=== PATIENT | female | born 1995 | race Caucasian/White ===

== ENCOUNTER 2024-01-25 11:18 | Emergency (ER) | payer MEDICAID, SELFPAY ==
[2024-01-25] VITALS (18 sets, daily range): BP systolic 162; BP diastolic 98; PULSE 99–115; TEMP 37.1; O2SAT 91–99; BMI 41.0
--- NOTE | 2024-01-25 12:17 | ECG_ITS ---
The [facility] Test Date: 2024-01-25 Pat Name: KIKI DIAZ Department: Room: - Gender: Female [employer]: : 1995 Requested By: [id number] Order Number: [id number] Reading MD: JULI LINDA Measurements Intervals [place] Rate: 106 P: 36 IN: 152 QRS: 9 QRSD: 86 T: 66 QT: 344 QTc: 406 Interpretive Statements 1120 Sinus tachycardia 9140 abnormal rhythm ECG No previous ECG available for comparison Electronically Signed On 01-25-2024 22:31:25 EDT by JULI LINDA
--- NOTE | 2024-01-25 12:17 | XR_ITS ---
The [address] [address] Patient Name: KIKI DIAZ MRN: [id number] date: 1995 Sex: F Assigned Patient Location: ER Current Patient Location: ER Accession/Order Number: [id number] Exam Date: 01/25/2024 13:05 Report Date: 01/25/2024 13:38 At the request of: JESSY MARIN Procedure: XR chest 2V EXAM: XR chest 2V HISTORY: chest pain w deep breath COMPARISON: 05/17/2021 TECHNIQUE: Upright PA and lateral chest x-ray FINDINGS: Shallow inspiration. Subtle atelectasis or infiltrate is seen at the left lung base posteriorly. The lungs otherwise clear, there is no evidence of an effusion or pneumothorax. The heart is not enlarged and the vasculature is not distended. The osseous structures are grossly intact XR/XR chest 2V IMPRESSION: A small amount of atelectasis or infiltrate is seen at the left lung base posteriorly. This may be exaggerated by the shallow inspiration. There is no other evidence of a focal infiltrate or cardiac decompensation. Electronically authenticated by: TRICE SINGER Date: 01/25/2024 13:38
[2024-01-25] MEDS: ALBUTEROL SULFATE 2.5 MG/3 ML VIAL NEB IH (12:31)
--- NOTE | 2024-01-25 13:29 | ED_ITS ---
Documented by User: ANA PAULA Aleman 01/25/24 15:20 HPI HPI - General Adult General Chief complaint: Shortness of Breath/Dyspnea Stated complaint: SHORTNESS OF BREATH Time Seen by Provider: 01/25/24 13:08 Source: patient Mode of arrival: walk-in Limitations: no limitations History of Present Illness HPI narrative: Patient is a 28-year-old female with a history of asthma and lupus who presents to the emergency department for evaluation of left upper chest pain that began last night. She denies any mechanism of injury or trauma. She states that the pain is worse with movement and deep breathing. She denies any recent illness, fevers, cough or congestion. She has not had any extremity swelling, hemoptysis. She does take control. She is a regular smoker and states she vapes. She has had no medications prior to arrival. Related Data Previous Rx's ?Medication ?Instructions ?Recorded ketorolac 10 mg tablet 10 mg PO TID PRN pain #10 tabs 01/25/24 methocarbamol 750 mg tablet 750 mg PO TID PRN pain #20 tabs 01/25/24 methylprednisolone 4 mg tablets in See Rx Instructions .Route 01/25/24 a dose pack (Medrol (Bernard)) .COMPLEX #21 ea Allergies Allergy/AdvReac Type Severity Reaction Status Date / Time No Known Drug Allergies Allergy Verified 01/25/24 11:42 Opioid HPI Opioid Management Most Recent Opioid Data: Last Pain Scale 7 01/25/24 13:41 Last MAR Pain Assessment 01/25/24 13:41 Review of Systems ROS Constitutional Denies: fever or chills Ears, nose, mouth, and throat Denies: throat pain or nasal congestion Cardiovascular Reports: chest pain Respiratory Denies: shortness of breath or cough Gastrointestinal Denies: nausea or vomiting Musculoskeletal Denies: back pain or neck pain Integumentary/Breast Denies: rash Hematologic/Lymphatic Denies: easy bruising or easy bleeding PFSH PFSH Social History Little interest or pleasure in doing things: not at all Feeling down, depressed, or hopeless: not at all Exam Narrative Exam Narrative: Gen.: Awake, alert, in no distress Head: Normocephalic, atraumatic ENT: Moist mucous membranes Respiratory: No respiratory distress, lungs clear bilaterally; pain on inspiration Cardio: Regular rate and rhythm Extremities: Moves extremities equally Psych: Normal mood and affect Neuro: No focal neuro deficit Skin: Warm, dry, intact Constitutional Vital Signs, click to edit/add: Last Vital Signs Temp 98.7 F 01/25/24 11:37 Pulse 112 H 01/25/24 14:30 Resp 28 H 01/25/24 14:30 BP 162/98 H 01/25/24 11:37 Pulse Ox 98 01/25/24 14:30 O2 Del Method Room Air 01/25/24 12:32 Course Vital Signs Vital signs: Vital Signs Temperature 98.7 F 01/25/24 11:37 Pulse Rate 109 H 01/25/24 11:37 Respiratory Rate 20 01/25/24 11:37 Blood Pressure 162/98 H 01/25/24 11:37 Pulse Oximetry 98 01/25/24 11:37 Oxygen Delivery Method Room Air 01/25/24 11:37 Temperature 98.7 F 01/25/24 11:37 Pulse Rate 112 H 01/25/24 14:30 Respiratory Rate 28 H 01/25/24 14:30 Blood Pressure 162/98 H 01/25/24 11:37 Pulse Oximetry 98 01/25/24 14:30 Oxygen Delivery Method Room Air 01/25/24 12:32 Medical Decision Making [facility] Narrative Medical decision making narrative: The patient is on control and did have tachycardia in the ER so we are not able to use a PERC score to rule out PE. Labs, IV and medications for the patient were ordered. The labs are all within normal limits except for D-dimer which was elevated. Patient was sent for CT angio of the chest which shows mild bibasilar atelectasis and fatty liver with no other acute process. Patient will be treated for pleurisy with a steroid taper, muscle relaxant and NSAIDs for home. Follow-up with PCP and return to the emergency department if symptoms change or worsen. SUPERVISED APC VISIT, PHYSICIAN ATTESTATION: Based on the medical record the care appears appropriate. ? Medical Records Medical records reviewed: Yes I reviewed the patient's medical records Lab Data Lab results reviewed: Yes I reviewed the patient's lab results Labs: Lab Results 01/25/24 Range/Units 13:31 WBC 4.1 (4.0-11.0) 10^3/uL RBC 4.44 (4.20-5.40) 10^6/uL Hgb 11.5 L (12.0-16.0) g/dL Hct 36.1 (36.0-48.0) % MCV 81.3 (81.0-99.0) fL MCH 25.9 L (26.7-34.0) pg MCHC 31.9 (29.9-35.2) g/dL RDW 13.3 (11.0-15.0) % Plt Count 208 (150-450) 10^3/uL MPV 9.4 L (9.5-13.5) fL Neut % (Auto) 39.2 L (43.0-75.0) % Lymph % (Auto) 49.4 (20.5-60.0) % Gregg % (Auto) 9.0 (1.7-12.0) % Eos % (Auto) 1.7 (0.9-7.0) % Baso % (Auto) 0.5 (0.2-2.0) % Neut # (Auto) 1.6 (1.4-6.5) 10^3/uL Lymph # (Auto) 2.0 (1.2-3.8) 10^3/uL Gregg # (Auto) 0.4 (0.3-0.8) 10^3/uL Eos # (Auto) 0.1 (0.0-0.7) 10^3/uL Baso # (Auto) 0.0 (0.0-0.1) 10^3/uL Abs Immat Gran (auto) 0.01 (0.00-0.03) 10^3/uL Imm/Tot Granulo (auto) 0.2 (0.0-0.5) % D-Dimer 0.71 H* (<=0.59) mg/L FEU Sodium 140 (136-145) mmol/L Potassium 3.7 (3.5-5.1) mmol/L Chloride 103 (98-107) mmol/L Carbon Dioxide 27.9 (21.0-32.0) mmol/L Anion Gap 12.8 BUN 10.0 (7.0-18.0) mg/dL Creatinine 0.67 (0.55-1.02) mg/dL Est GFR ( Amer) >60 (>=60) Est GFR (Non-Af Amer) >60 (>=60) BUN/Creatinine Ratio 14.9 Glucose 106 (74-106) mg/dL Calcium 9.0 (8.5-10.1) mg/dL Total Bilirubin 0.3 (0.2-1.0) mg/dL AST 93 H (15-37) U/L ALT 111 H (14-59) U/L Alkaline Phosphatase 65 (46-116) U/L Troponin I High Sens 4.8 (4.0-51.3) pg/mL Total Protein 7.9 (6.4-8.2) g/dL Albumin 3.6 (3.4-5.0) g/dL Globulin 4.3 g/dL Albumin/Globulin Ratio 0.8 Imaging Data Chest x-ray: Radiologist's impression: ITS Impressions Chest X-Ray 01/25/24 12:17 IMPRESSION: A small amount of atelectasis or infiltrate is seen at the left lung base posteriorly. This may be exaggerated by the shallow inspiration. There is no other evidence of a focal infiltrate or cardiac decompensation. Electronically authenticated by: TRICE SINGER Date: 01/25/2024 13:38 Chest CTA 01/25/24 14:19 IMPRESSION: No central pulmonary thromboembolic disease Mild dependent atelectasis Marked hepatic steatosis Electronically authenticated by: DRE KHOURY Date: 01/25/2024 15:14 ECG Data Attestation: I personally reviewed and interpreted this ECG as follows: (Sinus tachycardia at a rate of 106, no acute ST elevation or ectopy. EKG reviewed by attending physician) Discharge Plan Discharge Chief Complaint: Shortness of Breath/Dyspnea Clinical Impression: Pleurisy, Acute chest wall pain Patient Disposition: Home, Self-Care Time of Disposition Decision: 15:19 Condition: Good Prescriptions / Home Meds: New ketorolac 10 mg tablet 10 mg PO TID PRN (Reason: pain) Qty: 10 0RF methocarbamol 750 mg tablet 750 mg PO TID PRN (Reason: pain) Qty: 20 0RF methylprednisolone [Medrol (Bernard)] 4 mg tablets,dose pack See Rx Instructions .ROUTE .COMPLEX Qty: 21 0RF Rx Instructions: Taper as directed Print Language: Kinyarwanda Instructions: Pleurisy (ED), Chest Wall Pain (ED) Referrals: Physician,Non-Staff, [Primary Care Provider] - 1 week Discharge Date/Time: 01/25/24 15:26 Documented by User: Jerzy Griffin MD 01/25/24 16:21 HPI HPI - General Adult General Chief complaint: Shortness of Breath/Dyspnea Stated complaint: SHORTNESS OF BREATH Time Seen by Provider: 01/25/24 13:08 Related Data Previous Rx's ?Medication ?Instructions ?Recorded ketorolac 10 mg tablet 10 mg PO TID PRN pain #10 tabs 01/25/24 methocarbamol 750 mg tablet 750 mg PO TID PRN pain #20 tabs 01/25/24 methylprednisolone 4 mg tablets in See Rx Instructions .Route 01/25/24 a dose pack (Medrol (Bernard)) .COMPLEX #21 ea Allergies Allergy/AdvReac Type Severity Reaction Status Date / Time No Known Drug Allergies Allergy Verified 01/25/24 11:42 Opioid HPI Opioid Management Most Recent Opioid Data: Last Pain Scale 7 01/25/24 13:41 Last MAR Pain Assessment 01/25/24 13:41 PFSH PFSH Social History Little interest or pleasure in doing things: not at all Feeling down, depressed, or hopeless: not at all Exam Constitutional Vital Signs, click to edit/add: Last Vital Signs Temp 98.7 F 01/25/24 11:37 Pulse 112 H 01/25/24 14:30 Resp 28 H 01/25/24 14:30 BP 162/98 H 01/25/24 11:37 Pulse Ox 98 01/25/24 14:30 O2 Del Method Room Air 01/25/24 12:32 Course Vital Signs Vital signs: Vital Signs Temperature 98.7 F 01/25/24 11:37 Pulse Rate 109 H 01/25/24 11:37 Respiratory Rate 20 01/25/24 11:37 Blood Pressure 162/98 H 09/17/24 11:37 Pulse Oximetry 98 01/25/24 11:37 Oxygen Delivery Method Room Air 01/25/24 11:37 Temperature 98.7 F 01/25/24 11:37 Pulse Rate 112 H 01/25/24 14:30 Respiratory Rate 28 H 01/25/24 14:30 Blood Pressure 162/98 H 01/25/24 11:37 Pulse Oximetry 98 01/25/24 14:30 Oxygen Delivery Method Room Air 01/25/24 12:32 Medical Decision Making MDM Narrative Medical decision making narrative: The patient is on control and did have tachycardia in the ER so we are not able to use a PERC score to rule out PE. Labs, IV and medications for the patient were ordered. The labs are all within normal limits except for D-dimer which was elevated. Patient was sent for CT angio of the chest which shows mild bibasilar atelectasis and fatty liver with no other acute process. Patient will be treated for pleurisy with a steroid taper, muscle relaxant and NSAIDs for home. Follow-up with PCP and return to the emergency department if symptoms change or worsen. SUPERVISED APC VISIT, PHYSICIAN ATTESTATION: Dr Griffin saw this patient at bedside prior to discharge as well. I, Dr Griffin, have reviewed the above progress note and course of action in the ER; agree with the above. I have personally seen and evaluated this patient, gone over history and physical, and discussed disposition and treatment plan with the patient. Patient left ear shows no bulging, erythema, perforation, no acute abnormalities. No cerumen noted in left auditory canal. Patient stated she had a fullness in her left ear, patient was suggested to use antihistamines and Flonase. Based on the medical record the care appears appropriate. ? Lab Data Labs: Lab Results 01/25/24 Range/Units 13:31 WBC 4.1 (4.0-11.0) 10^3/uL RBC 4.44 (4.20-5.40) 10^6/uL Hgb 11.5 L (12.0-16.0) g/dL Hct 36.1 (36.0-48.0) % MCV 81.3 (81.0-99.0) fL MCH 25.9 L (26.7-34.0) pg MCHC 31.9 (29.9-35.2) g/dL RDW 13.3 (11.0-15.0) % Plt Count 208 (150-450) 10^3/uL MPV 9.4 L (9.5-13.5) fL Neut % (Auto) 39.2 L (43.0-75.0) % Lymph % (Auto) 49.4 (20.5-60.0) % Gregg % (Auto) 9.0 (1.7-12.0) % Eos % (Auto) 1.7 (0.9-7.0) % Baso % (Auto) 0.5 (0.2-2.0) % Neut # (Auto) 1.6 (1.4-6.5) 10^3/uL Lymph # (Auto) 2.0 (1.2-3.8) 10^3/uL Gregg # (Auto) 0.4 (0.3-0.8) 10^3/uL Eos # (Auto) 0.1 (0.0-0.7) 10^3/uL Baso # (Auto) 0.0 (0.0-0.1) 10^3/uL Abs Immat Gran (auto) 0.01 (0.00-0.03) 10^3/uL Imm/Tot Granulo (auto) 0.2 (0.0-0.5) % D-Dimer 0.71 H* (<=0.59) mg/L FEU Sodium 140 (136-145) mmol/L Potassium 3.7 (3.5-5.1) mmol/L Chloride 103 (98-107) mmol/L Carbon Dioxide 27.9 (21.0-32.0) mmol/L Anion Gap 12.8 BUN 10.0 (7.0-18.0) mg/dL Creatinine 0.67 (0.55-1.02) mg/dL Est GFR ( Amer) >60 (>=60) Est GFR (Non-Af Amer) >60 (>=60) BUN/Creatinine Ratio 14.9 Glucose 106 (74-106) mg/dL Calcium 9.0 (8.5-10.1) mg/dL Total Bilirubin 0.3 (0.2-1.0) mg/dL AST 93 H (15-37) U/L ALT 111 H (14-59) U/L Alkaline Phosphatase 65 (46-116) U/L Troponin I High Sens 4.8 (4.0-51.3) pg/mL Total Protein 7.9 (6.4-8.2) g/dL Albumin 3.6 (3.4-5.0) g/dL Globulin 4.3 g/dL Albumin/Globulin Ratio 0.8 Imaging Data Chest x-ray: Radiologist's impression: ITS Impressions Chest X-Ray 01/25/24 12:17 IMPRESSION: A small amount of atelectasis or infiltrate is seen at the left lung base posteriorly. This may be exaggerated by the shallow inspiration. There is no other evidence of a focal infiltrate or cardiac decompensation. Electronically authenticated by: TRICE SINGER Date: 01/25/2024 13:38 Chest CTA 01/25/24 14:19 IMPRESSION: No central pulmonary thromboembolic disease Mild dependent atelectasis Marked hepatic steatosis Electronically authenticated by: DRE KHOURY Date: 01/25/2024 15:14 Discharge Plan Discharge Chief Complaint: Shortness of Breath/Dyspnea Clinical Impression: Pleurisy, Acute chest wall pain Patient Disposition: Home, Self-Care Time of Disposition Decision: 15:19 Condition: Good Prescriptions / Home Meds: New ketorolac 10 mg tablet 10 mg PO TID PRN (Reason: pain) Qty: 10 0RF methocarbamol 750 mg tablet 750 mg PO TID PRN (Reason: pain) Qty: 20 0RF methylprednisolone [Medrol (Bernard)] 4 mg tablets,dose pack See Rx Instructions .ROUTE .COMPLEX Qty: 21 0RF Rx Instructions: Taper as directed Print Language: Kinyarwanda Instructions: Pleurisy (ED), Chest Wall Pain (ED) Referrals: Physician,Non-Staff, MD [Primary Care Provider] - 1 week Discharge Date/Time: 01/25/24 15:26
[2024-01-25 13:41] LABS: Basophils Percent Auto 0.5 % (0.2-2.0); Eosinophils Absolute Auto 0.1 10^3/uL (0.0-0.7); Eosinophils Percent Auto 1.7 % (0.9-7.0); Hematocrit 36.1 % (36.0-48.0); Hemoglobin 11.5 g/dL (12.0-16.0); Immature Granulocytes Abs Auto 0.01 10^3/uL (0.00-0.03); Immature Granulocytes Pct Auto 0.2 % (0.0-0.5); Lymphocytes Percent Auto 49.4 % (20.5-60.0); Mean Corpuscular HGB Conc 31.9 g/dL (29.9-35.2); Mean Corpuscular Hemoglobin 25.9 pg (26.7-34.0); Mean Corpuscular Volume 81.3 fL (81.0-99.0); Mean Platelet Volume 9.4 fL (9.5-13.5); Monocytes Absolute Auto 0.4 10^3/uL (0.3-0.8); Neutrophils Absolute Auto 1.6 10^3/uL (1.4-6.5); Neutrophils Percent Auto 39.2 % (43.0-75.0); Platelet Count 208 10^3/uL (150-450); Red Blood Count 4.44 10^6/uL (4.20-5.40); Red Cell Distribution Width 13.3 % (11.0-15.0); White Blood Count 4.1 10^3/uL (4.0-11.0)
[2024-01-25] MEDS: METHYLPREDNISOLONE SOD SUCC PF 125 MG/2 ML VIAL IVP (13:41)
[2024-01-25] MEDS: KETOROLAC TROMETHAMINE 30 MG/ML VIAL IVP (13:41)
[2024-01-25 13:58] LABS: Alanine Aminotransferase 111 U/L (14-59); Albumin Globulin Ratio 0.8; Albumin Level 3.6 g/dL (3.4-5.0); Alkaline Phosphatase 65 U/L (46-116); Aspartate Amino Transferase 93 U/L (15-37); BUN Creatinine Ratio 14.9; Bilirubin Total 0.3 mg/dL (0.2-1.0); Chloride 103 mmol/L (98-107); Estimated GFR (African America >60 (>=60); Estimated GFR (Non-African Ame >60 (>=60); Globulin 4.3 g/dL; Glucose 106 mg/dL (74-106); Potassium 3.7 mmol/L (3.5-5.1); Sodium 140 mmol/L (136-145); Total Protein 7.9 g/dL (6.4-8.2)
[2024-01-25 14:00] LABS: Troponin I High Sensitivity 4.8 pg/mL (4.0-51.3)
[2024-01-25 14:02] LABS: Anion Gap 12.8; Carbon Dioxide 27.9 mmol/L (21.0-32.0)
[2024-01-25 14:19] LABS: D Dimer 0.71 mg/L FEU (<=0.59)
--- NOTE | 2024-01-25 14:19 | CT_ITS ---
[address] [address] Patient Name: KIKI DIAZ MRN: [id number] date: 1995 Sex: F Assigned Patient Location: ER Current Patient Location: ER Accession/Order Number: [id number] Exam Date: 01/25/2024 14:43 Report Date: 01/25/2024 15:14 At the request of: ESPERANZA PRESTON Procedure: CT angio chest EXAMINATION: CT angio chest HISTORY: PE, pleuritic chest pain COMPARISON: 01/25/2024 TECHNIQUE: Multi-planar CT images were created with IV contrast. Axial, Coronal, and Sagittal images. Dose reduction techniques were achieved by using automated exposure control and/or adjustment of mA and/or kV according to patient size and/or use of iterative reconstruction technique. FINDINGS: LUNGS: Mild basilar infiltrates, atelectasis is favored PLEURA: No mass, effusion, or pneumothorax. VASCULATURE: Normal postcontrast opacification. No filling defect to suggest a central pulmonary embolus HARRY: No mass or adenopathy. MEDIASTINUM: Soft tissue attenuation in the anterior mediastinum likely residual thymic tissue CARDIAC: No enlargement or pericardial effusion Coronary arteries: Absent calcification AORTA: No aneurysm or dissection. CHEST WALL: No mass or axillary adenopathy. BONES: No bone lesion or fracture. LIMITED ABDOMEN: Marked diffuse hypoattenuation the liver, hepatic steatosis OTHER: Negative. CT/CT angio chest IMPRESSION: No central pulmonary thromboembolic disease Mild dependent atelectasis Marked hepatic steatosis Electronically authenticated by: DRE KHOURY Date: 01/25/2024 15:14
== END 2024-01-25 15:26 | disposition home or self-care (01) ==
PROVIDERS: Physician Assistant; Emergency Provider Emergency Medicine
DX: R09.1 Pleurisy (principal); R07.89 Other chest pain; F17.290 Nicotine dependence, other tobacco product, uncomplicated; Z79.3 Long term (current) use of hormonal contraceptives
CPT/HCPCS: 36415; 71046; 71275; 80053; 84484; 85025; 85378; 93005; 94640; 96374; 96375; 99285; J1885; J2919; Q9967